=== PATIENT | female | born 2000 | race Caucasian/White ===

== ENCOUNTER 2020-12-18 04:14 | Day surgery (SDC) | payer OTHER, SELFPAY ==
[2020-12-18] VITALS (10 sets, daily range): BP systolic 98–137; BP diastolic 58–87; PULSE 55–92; RESP 14–28; TEMP 36.2–37; O2SAT 99–100
--- NOTE | ~2020-12-18 | CT_ITS ---
EXAMINATION: CT abdomen pelvis wo con DATE: 12/18/2020 08:01 INDICATION: Kidney stone. TECHNIQUE: Computed tomography (CT) of the abdomen and pelvis was performed without intravenous contr ast. Automated exposure control and iterative reconstruction technique were employed. The dose-length product was 176.53 mGy-cm. COMPARISON: CT abdomen and pelvis at 6:39 AM FINDINGS: The visualized portions of the lung bases are clear without pneumonia or pleural effusion. The heart size is normal. No pericardial effusion. The liver, gallbladder, spleen, pancreas, adrenal glands, and kidneys are normal. There is contrast in the proximal ureters from the prior CT. The dist al ureters are not well opacified. There is an 8 mm calcification at the right ureterovesicular junct ion. There is a 4 mm calcification at left ureterovesicular junction. There are no dilated loops of b owel. The appendix is not visualized. There are no pathologically enlarged lymph nodes. There is a sm all volume of pelvic ascites, likely physiologic. There is a benign bone island in right femoral head . IMPRESSION: 1. 8 mm calcification in the area of the right ureterovesicular junction and 4 mm calcification in th e area of the left ureterovesicular junction that are likely stones. No hydronephrosis. Reviewed, dictated and finalized at location B. IMPRESSION: 1. 8 mm calcification in the area of the right ureterovesicular junction and 4 mm calcification in the area of the left ureterovesicular junction that are lik leonid stones. No hydronephrosis.
--- NOTE | ~2020-12-18 | CT_ITS ---
EXAMINATION: CT abdomen pelvis w con DATE: 12/18/2020 06:54 INDICATION: Right lower abdominal pain TECHNIQUE: Computed tomography (CT) of the abdomen and pelvis was performed with 100 cc Omnipaque 350 intravenous contrast. Automated exposure control and iterative reconstruction technique were employe d. Exam dose: 214.48 mGy-cm total exam DLP. COMPARISON: None. FINDINGS: The lung bases are clear of infiltrate or consolidation. Normal heart size. No pericardial or pleural effusion. The liver, gallbladder, bile ducts, spleen, pancreas, pancreatic duct, and adrenal glands are unremar kable. No renal mass lesion or scarring or left or right nephrolithiasis is noted. Bilateral moderately prominent extrarenal pelves. There is a 4 mm calcification at the left ureterovesical junction/posterior aspect of the urinary lachelle dder. There is an approximately 3.3 x 8.5 mm calcification in the region of the distal right ureter. Differ ential diagnosis includes distal ureteral calculi versus calcified appendicolith. The appendix is not definitively localized. KUB and delayed postcontrast CT abdomen pelvis images may be helpful for further evaluation of these findings. There is moderate diffuse thickening of the urinary bladder wall which may be due to underdistention or possibly cystitis. Peripherally enhancing apparently involuting or ruptured 2.3 cm left ovarian cyst. There is mild to m oderate free fluid in the posterior and anterior cul-de-sac. Normal caliber of the abdominal aorta. No intraperitoneal or retroperitoneal or pelvic mass lesion or adenopathy is evident. Included skeletal structures are unremarkable. IMPRESSION: Calcifications at left UVJ and in the region of the distal right ureter or possibly appe ndix; KUB and delayed CT abdomen pelvis imaging would be helpful for further evaluation. Probable involuting or ruptured 2.3 cm left ovarian cyst with moderate moderate free fluid in the ant erior and posterior cul-de-sac Reviewed, dictated and finalized at [facility]. Reviewed, dictated and finalized at location A. IMPRESSION: Calcifications at left UVJ and in the region of the distal right u reter or possibly appendix; KUB and delayed CT abdomen pelvis imaging would be helpful for further evaluation. Probable involuting or ruptured 2.3 cm left ovarian cyst with moderate moderate free fluid in the anterior and posterior cul-de-sac
--- NOTE | ~2020-12-18 | XR_ITS ---
EXAMINATION: XR abdomen/kub 1V DATE: 12/18/2020 08:11 INDICATION: Right flank pain. TECHNIQUE: A supine view of the abdomen on 2 radiographs was obtained. COMPARISON: CT abdomen and pelvis 12/18/2020 FINDINGS: There are no dilated loops of bowel. There is contrast in the renal collecting system. IMPRESSION: 1. Normal bowel gas pattern. Reviewed, dictated and finalized at location B.
--- NOTE | ~2020-12-18 | XR_ITS ---
EXAMINATION: XR retrograde pyelogram BI DATE: 12/18/2020 15:39 INDICATION: Right flank pain with stones at the bilateral ureterovesicular junctions on prior CT TECHNIQUE: 36 fluoroscopic images of the abdomen and pelvis were obtained during procedure performed by Dr. Lopez. Radiologist was not present for the imaging or procedure. The amount of fluoroscopy time used during this procedure was 0.3 minutes. COMPARISON: None. FINDINGS: The stones seen at the bilateral ureterovesicular junctions on prior CT are unable to be visualized o n the step finisher fluoroscopic images. Subsequent images demonstrate a left retrograde Polygram with normal appearance to the left renal collecting system and ureter. Additional images demonstrate cannulation a wire advanced into the right ureter. There is contrast within the right renal collecting system on the final images however no images recorded of the right ureter during the course of the injection. IMPRESSION: 1. Fluoroscopy utilized during bilateral retrograde pyelograms which appear unremarkable. 2. The stones at the bilateral ureterovesicular junction previously seen on CT are not visualized on the step finisher images and may have passed. See procedure note for further detail. Reviewed, dictated and finalized at location A. IMPRESSION: 1. Fluoroscopy utilized during bilateral retrograde pyelograms which appear unr emarkable. 2. The stones at the bilateral ureterovesicular junction previously seen on CT are not visualized on the step finisher images and may have passed. See procedure note for further detail.
[2020-12-18 04:53] LABS: Add Urine Microscopic? YES; Appearance Urine Cloudy (Clear); Bilirubin Urine Negative (Negative); Blood Urine Negative (Negative); Color Urine Yellow (Yellow); Glucose Urine UA Negative (Negative); Ketones Urine Negative (Negative); Leukocyte Esterase Ur Negative LEU/UL (Negative); Mucus Urine Rare /lpf; Nitrate Urine Negative (Negative); Protein Urine Negative (Negative); RBC Urine 0-2 /hpf (0-2); Specific Grav Ur 1.021 (1.001-1.035); Squamous Epithelial Cell Urine Moderate /hpf (Few); Urobilinogen Urine Negative mg/dL (<2.0); WBC Urine 0-3 /hpf
--- NOTE | 2020-12-18 05:30 | ED.ABDPAIN ---
HPI - Abdominal Pain General Chief Complaint: Abdominal Pain <Klaudia Byers MD - Last Filed: 12/18/20 19:05> Stated Complaint: abdominal pain <Klaudia Byers MD - Last Filed: 12/18/20 19:05> Time Seen by Provider: 12/18/20 05:12 <Klaudia Byers MD - Last Filed: 12/18/20 19:05> Source: patient <Klaudia Byers MD - Last Filed: 12/18/20 19:05> Mode of arrival: ambulatory <Klaudia Byers MD - Last Filed: 12/18/20 19:05> Limitations: no limitations <Klaudia Byers MD - Last Filed: 12/18/20 19:05> History of Present Illness HPI narrative: This is a 20 year old female who presents for evaluation of right lower abdominal pain. She woke up with pain at 3 am this morning. Her pain is located at her right lower abdomen and it is nonradiating. She states her pain has gradually worsened, and she had an episode of nausea and vomiting. She has not taken anything pain. Pain is worse with walking. Her pain is currently rated 5/10. She denies urinary symptoms. <Klaudia Byers MD - Last Filed: 12/18/20 19:05> Related Data Home Medications: Home Medications Medication Instructions Recorded Confirmed No Home Medications 12/18/20 12/18/20 <Klaudia Byers MD - Last Filed: 12/18/20 19:05> Allergies/Adverse Reactions: Allergies Allergy/AdvReac Type Severity Reaction Status Date / Time No Known Allergies Allergy Verified 12/18/20 04:15 <Klaudia Byers MD - Last Filed: 12/18/20 19:05> Review of Systems Review of Systems: All systems reviewed & are unremarkable except as noted in HPI and below <Klaudia Byers MD - Last Filed: 12/18/20 19:05> Gastrointestinal: Gastrointestinal: Reports abdominal pain, Denies diarrhea, Reports nausea and Reports vomiting <Klaudia Byers MD - Last Filed: 12/18/20 19:05> Genitourinary: Genitourinary: Denies hematuria, Denies nocturia, Denies genital lesions and Denies dysuria <Klaudia Byers MD - Last Filed: 12/18/20 19:05> [facility] Past Medical History Medical History: Medical History Patient denies medical problems <Klaudia Byers MD - Last Filed: 12/18/20 19:05> Surgical History Surgical History: Surgical History H/O foot surgery <Klaudia Byers MD - Last Filed: 12/18/20 19:05> Exam Const: General: no acute distress and alert <Klaudia Byers MD - Last Filed: 12/18/20 19:05> Orientation/consciousness: patient oriented x3 <Klaudia Byers MD - Last Filed: 12/18/20 19:05> Eyes: EOM: EOMs intact bilaterally <Klaudia Byers MD - Last Filed: 12/18/20 19:05> Resp: Effort & Inspection: normal respiratory effort and no retractions <Klaudia Byers MD - Last Filed: 12/18/20 19:05> Auscultation: clear to auscultation bilaterally <Klaudia Byers MD - Last Filed: 12/18/20 19:05> Cardio: Rate: regular rate <Klaudia Byers MD - Last Filed: 12/18/20 19:05> Rhythm: regular rhythm <Klaudia Byers MD - Last Filed: 12/18/20 19:05> Heart sounds: no murmurs <Klaudia Byers MD - Last Filed: 12/18/20 19:05> GI: GI Palp: Yes Soft to palpation, Yes Tenderness to palpation present (GI) (RLQ) and No Guarding due to palpation present (GI) <Klaudia Byers MD - Last Filed: 12/18/20 19:05> Auscultation: normal bowel sounds <Klaudia Byers MD - Last Filed: 12/18/20 19:05> : General: Yes no CVA tenderness <Klaudia Byers MD - Last Filed: 12/18/20 19:05> Skin: General skin exam: normal color <Klaudia Byers MD - Last Filed: 12/18/20 19:05> Rashes: no rashes <Klaudia Byers MD - Last Filed: 12/18/20 19:05> Neuro: General: patient oriented x3, moves all extremities and CN's II-XI intact bilaterally <Klaudia Byers MD - Last Filed: 12/18/20 19:05> Course Reevaluation(s) Reevaluation #1: I Discussed case with Dr. Sue. Pa
[2020-12-18 05:58] LABS: Basophils Absolute Auto 0.1 K/mm3 (0.0-0.1); Basophils Percent Auto 0.7 % (0.2-1.2); Eosinophils Absolute Auto 0.1 K/mm3 (0-0.3); Eosinophils Percent Auto 1.5 % (0-4.4); Hematocrit 42.9 % (37.0-47.0); Hemoglobin 14.8 g/dL (12.0-15.0); Immature Granulocyte Absolute 0.02 K/mm3 (0.00-0.031); Immature Granulocyte Percent A 0.3 % (0-0.5); Lymphocytes Absolute Auto 1.18 K/mm3 (0.9-3.2); Lymphocytes Percent Auto 17.2 % (18.3-44.2); Mean Corpuscular HGB Conc 34.5 g/dl (32-36); Mean Corpuscular Volume 89.9 fl (80-100); Mean Platelet Volume 10.5 fl (7.4-10.4); Monocytes Absolute Auto 0.4 K/mm3 (0.1-0.6); Monocytes Percent Auto 5.1 % (2.6-8.5); Neutrophils Absolute Auto 5.2 K/mm3 (1.3-6.7); Neutrophils Percent Auto 75.2 % (45.5-73.1); Platelet Count Result 161 k/mm3 (150-375); Red Blood Count 4.77 M/mm3 (4.2-5.4); Red Cell Distribution Width 11.7 % (11.5-14.5); White Blood Count 6.9 K/mm3 (4.5-10.0)
[2020-12-18 06:15] LABS: Alanine Aminotransferase 9 U/L (4-35); Albumin Level 4.9 g/dL (3.5-5.1); Alkaline Phosphatase 39 U/L (38-126); Anion Gap 9 mmol/L (8-16); Aspartate Amino Transferase 22 U/L (14-36); Bilirubin,Total 0.5 mg/dL (0.2-1.3); Blood Urea Nitrogen 13 mg/dL (7-17); Calcium 9.3 mg/dL (8.4-10.2); Carbon Dioxide 24 mmol/L (22-30); Chloride 106 mmol/L (98-107); Estimated CRCL calculation 77 ml/min; Estimated Glomerular Filt Rate > 60; Glucose 107 mg/dL (65-105); Lipase 59 U/L (23-300); Potassium 3.8 mmol/L (3.4-5.0); Sodium 139 mmol/L (137-145)
[2020-12-18] MEDS: LACTATED RINGERS 1,000 ML 999 ML IV CONT (06:17)
[2020-12-18] MEDS: ONDANSETRON INJ 4 MG/2 ML VIAL IV PUSH (06:18)
--- NOTE | 2020-12-18 09:39 | WPDURCON ---
Assessment and Plan Assessment and plan (1) Bilateral ureteral calculi: Code(s): N20.1 - Calculus of ureter Status: Acute Assessment and Plan: Obtain Consent:Cystoscopy, bilateral ureteroscopy with stone extraction, possible bilateral stent placement, bilateral retrograde pyelogram, possible holmium laser. Keep NPO Plan to go to the OR this afternoon with Dr. Lopez. Urology Consult Note HPI Date Seen: 12/18/20 Primary Care Provider: [employer] OFFICER PHYSICIAN Consult Narrative Narrative: Lucy Melendez is a 20 year old female who presented to the ER early this morning after acute onset of RLQ pain with nausea and vomiting. She has no urologic history of stones or UTI's to this point. She does note excessive soda consumption and very little to no water intake. She denies frequency, urgency, hematuria, dysuria or flank pain. She is afebrile, creatinine is 0.90, UA is normal other than some cloudy urine, urine culture is pending. CT scan abdomen/pelvis shows an 8mm Right UVJ stone as well as a 4mm Left UVJ stone without hydronephrosis. Not visible on KUB. Her pain is improved on pain medication and she denies left sided pain. She is otherwise healthy, no family history of kidney stones. Review of Systems Cardiovascular: Cardiovascular: Denies chest pain Respiratory: Respiratory: Reports no additional respiratory complaints Gastrointestinal: Gastrointestinal: Reports abdominal pain, Reports nausea and Reports vomiting Genitourinary: Genitourinary: Denies hematuria, Denies dysuria, Denies pelvic pain, Denies flank pain, Denies urinary hesitancy and Denies urinary urgency PMF Past Medical History Medical History Patient denies medical problems Surgical History Surgical History H/O foot surgery Meds Home Medications and Allergies Allergies Allergy/AdvReac Type Severity Reaction Status Date / Time No Known Allergies Allergy Verified 12/18/20 04:15 Vital Signs Vital Signs - 24 hr 12/18/20 04:19 12/18/20 07:05 Temperature 97.2 F L Pulse Rate 87 85 Respiratory Rate 16 18 Blood Pressure 108/68 109/65 Pulse Oximetry 99 100 Exam Resp: Effort & Inspection: normal respiratory effort Cardio: Rate: regular rate GI: GI Palp: Yes Soft to palpation and Yes Tenderness to palpation present (GI) (RLQ) : General: Yes no CVA tenderness Extrem: General: no edema Results Labs CBC & Chem 7: 12/18/20 05:45 12/18/20 05:45 Labs: Short CBC 12/18/20 Range/Units 05:45 WBC 6.9 (4.5-10.0) K/mm3 Hgb 14.8 (12.0-15.0) g/dL Hct 42.9 (37.0-47.0) % Plt Count 161 (150-375) k/mm3 BMP 12/18/20 05:45 Sodium 139 Potassium 3.8 Chloride 106 Carbon Dioxide 24 BUN 13 Creatinine 0.90 Glucose 107 H Calcium 9.3 Liver Function 12/18/20 Range/Units 05:45 Total Bilirubin 0.5 (0.2-1.3) mg/dL AST 22 (14-36) U/L ALT 9 (4-35) U/L Alkaline Phosphatase 39 (38-126) U/L Albumin 4.9 (3.5-5.1) g/dL Urine 12/18/20 Range/Units 04:36 Urine Color Yellow (Yellow) Urine Appearance Cloudy H (Clear) Urine pH 6.0 (5.0-9.0) Ur Specific [place] 1.021 (1.001-1.035) Urine Protein Negative (Negative) mg/dL Urine Glucose (UA) Negative (Negative) mg/dL
--- NOTE | 2020-12-18 11:39 | WPDHPUPDATE1 ---
History and Physical Update Update Date/Time: 12/18/20 11:39 History and Physical has been reviewed, including an updated exam of the patient. There are NO changes in the patient's condition. Risks, benefits, and alternatives have been discussed and questions answered. Patient agrees to proceed with procedure.
--- NOTE | 2020-12-18 13:40 | WPDANESEPPF ---
Anes - Initial Pre Proc Eval Procedure: Operation Date: 12/18/20 15:45 Proposed Procedures p Cystoscopy, Bilateral Retrograde Pyelogram, Bilateral Stone Extraction, Possible Bilateral Stent Placement(Bilateral) - Alexander Lopez MD s Possible Holmium Laser Procedure - Alexander Lopez MD Date/Time: 12/18/20 13:40 Surgeon: Alexander Lopez MD Pre Op Diagnosis: Bilateral ureteral stones Patient Data Age: 20 Gender: F Height: 5 ft 11 in Weight: 56.7 kg Last Vital Signs Temp 36.2 C L 12/18/20 04:19 Pulse 77 12/18/20 10:45 Resp 17 12/18/20 10:45 BP 137/86 12/18/20 10:45 Pulse Ox 100 12/18/20 10:45 Allergies Allergy/AdvReac Type Severity Reaction Status Date / Time No Known Allergies Allergy Verified 12/18/20 04:15 Home Medications Medication Instructions Recorded Confirmed Type No Home Medications 12/18/20 12/18/20 History Laboratory Tests 12/18/20 12/18/20 12/18/20 04:36 05:45 05:45 WBC 6.9 K/mm3 K/mm3 (4.5-10.0) RBC 4.77 M/mm3 M/mm3 (4.2-5.4) Hgb 14.8 g/dL g/dL (12.0-15.0) Hct 42.9 % % (37.0-47.0) MCV 89.9 fl fl (80-100) MCH 31.0 pg pg (26-34) MCHC 34.5 g/dl g/dl (32-36) RDW 11.7 % % (11.5-14.5) Plt Count 161 k/mm3 k/mm3 (150-375) MPV 10.5 fl H fl (7.4-10.4) Immature Gran % (Auto) 0.3 % % (0-0.5) Neut % (Auto) 75.2 % H % (45.5-73.1) Lymph % (Auto) 17.2 % L % (18.3-44.2) [place] % (Auto) 5.1 % % (2.6-8.5) Eos % (Auto) 1.5 % % (0-4.4) Baso % (Auto) 0.7 % % (0.2-1.2) Lymph # (Auto) 1.18 K/mm3 K/mm3 (0.9-3.2) [place] # (Auto) 0.4 K/mm3 K/mm3 (0.1-0.6) Eos # (Auto) 0.1 K/mm3 K/mm3 (0-0.3) Baso # (Auto) 0.1 K/mm3 K/mm3 (0.0-0.1) Abs Immat Gran (auto) 0.02 K/mm3 K/mm3 (0.00-0.031) Absolute Neuts (auto) 5.2 K/mm3 K/mm3 (1.3-6.7) Absolute Nucleated RBC 0.0 K/mm3 K/mm3 (0.0-0.012) Nucleated RBC % 0.0 % % (0.0-0.2) Sodium 139 mmol/L mmol/L (137-145) Potassium 3.8 mmol/L mmol/L (3.4-5.0) Chloride 106 mmol/L mmol/L (98-107) Carbon Dioxide 24 mmol/L mmol/L (22-30) Anion Gap 9 mmol/L mmol/L (8-16) BUN 13 mg/dL mg/dL (7-17) Creatinine 0.90 mg/dL mg/dL (0.7-1.0) Estim Creat Clear Calc 77 ml/min ml/min Estimated GFR > 60 (59 - ) Glucose 107 mg/dL H mg/dL (65-105) Calcium 9.3 mg/dL mg/dL (8.4-10.2) Total Bilirubin 0.5 mg/dL mg/dL (0.2-1.3) AST 22 U/L U/L (14-36) ALT 9 U/L U/L (4-35) Alkaline Phosphatase 39 U/L U/L (38-126) Total Protein 8.0 g/dL g/dL (6.3-8.2) Albumin 4.9 g/dL g/dL (3.5-5.1) Lipase 59 U/L U/L (23-300) Urine Color Yellow (Yellow) Urine Appearance Cloudy H (Clear) Urine pH 6.0 (5.0-9.0) Ur Specific [place] 1.021 (1.001-1.035) Urine Protein Negative mg/dL mg/dL (Negative) Urine Glucose (UA) Negative mg/dL mg/dL (Negative) Urine Ketones Negative mg/dL mg/dL (Negative) Ur Blood (Man) Negative (Negative) Urine Nitrate Negative (Negative) Urine Bilirubin Negative (Negative) Urine Urobilinogen Negative mg/dL mg/dL (<2.0) Leukocyte Esterase Rfl Negative CARRI/UL CARRI/UL (Negative) Urine RBC 0-2 /hpf /hpf (0-2) Urine WBC 0-3 /hpf /hpf Ur Squamous Epith Cells Moderate /hpf H /hpf (Few) Urine Mucus Rare /lpf /lpf Patient hx anesthesia problems: none Family hx anesthesia problems: none PMFSH Past Medical History Medical History Patient nan
[2020-12-18] MEDS: LACTATED RINGERS 1,000 ML 30 ML IV CONT ×2 (14:30→15:37)
[2020-12-18] MEDS: ceFAZolin 2 GM/D5W 50 ML 2 GM/50 ML BAG IVPB (15:03)
[2020-12-18] MEDS: KETOROLAC 30 MG/ML VIAL (*BKC) 15 MG IV PUSH (15:10)
[2020-12-18] MEDS: LIDOCAINE HCL 2% GEL UROJET 10 ML PKG MUCOUS MEM (15:29)
--- NOTE | 2020-12-18 15:45 | PM.PROC ---
Procedure Note - Detailed Date of procedure: 12/18/20 Pre-op diagnosis: Bilateral ureteral stones Post-op diagnosis: other (No stones noted in either ureter) Procedure performed: Cystoscopy with bilateral retrogrades, bilateral ureteroscopy Description of procedure: Patient is taken the operative suite and correctly identified. Once anesthesia was obtained she was placed in dorsal lithotomy position and prepped draped usual sterile fashion. Twenty-two Nepali scope was inserted the bladder there is no tumors noted both ureteral orifices normal anatomic position. Left ureteral orifice was cannulated with a guidewire and dilated with an 8/10 dilator. Rigid ureteral scope was inserted in the ureter appeared pristine all the way up to the UPJ area. No stone was visualized. Pyelogram was performed that again revealed no hydronephrosis at this time. Similar procedure was done on the right ureter and collecting system. Again no stone noted anywhere along the ureter. Given the very minimal manipulation no stent was left. 2% viscous lidocaine was inserted urethra patient is taken recovery stable condition. No further follow-up is needed from a urologic standpoint at this time. Anesthesia: GLMA Surgeon: Alexander Lopez MD Drains: No Packing: No Pathology: none sent Complications: No immediate complications Condition: stable Disposition: PACU Findings: No stones found in either ureter.
[2020-12-18] MEDS: oxyCODONE HCL (*CRX) 5 MG TAB IR PO (16:42)
== END 2020-12-18 17:18 | disposition home or self-care (01) ==
LOC: ANHED 11:26 → ANH3MEDSUR 15:50 → ANHSURGERY 12-20 07:56
PROVIDERS: General Practice; Urology; Emergency Provider Emergency Medicine
PROC: (CPT 52352; principal; 2020-12-18 15:45)
DX: N20.1 Calculus of ureter (principal)
CPT/HCPCS: 52005; 36415; 74018; 74176; 74177; 74420; 80053; 81001; 81025; 83690; 85025; 96361; 96365; 96375; 99285; A9270; C1758; C1769; J0131; J0690; J1100; J1885; J2250; J2405; J2704; J3010; J7120; Q9966; Q9967

== ENCOUNTER 2023-04-14 08:00 | Outpatient (NON) | payer OTHER, SELFPAY | END 2023-04-14 08:01 | disposition home or self-care (01) | LOC: ANHLAB 04-15 12:19 | PROVIDERS: Visit Provider Nurse Practitioner | DX: D22.72 Melanocytic nevi of left lower limb, including hip (principal) | CPT/HCPCS: 88305 ==